=== PATIENT | female | born 1965 | race Caucasian/White ===

== ENCOUNTER 2018-09-30 07:05 | Day surgery (SDC) | payer BC ==
[~2018-09-30] VITALS: Ht 157.5 cm; Wt 55.5 kg
--- NOTE | ~2018-09-30 | OP ---
PATIENT NAME: CHANTEL SINGH MEDICAL RECORD: [id number] :61 LOCATION:D.OPS ADMISSION DATE: SURGEON: AZUL INFANTE MD DATE OF OPERATION: 09/30/2018 PROCEDURE: Colonoscopy without polypectomy or biopsy. SENIOR LIBRARIAN: Azul Infante MD SCOPE: Olympus video colonoscope. MEDICATIONS: Per TIVA anesthesia. The patient has lupus, also glaucoma. She had 250 mg of propofol for this procedure, O2 4 liters. INDICATION FOR THE PROCEDURE: History of colon polyps, last procedure in 2013. This is a screening colonoscopy. FINDINGS: Informed consent was given. The patient was made comfortable with the above medications. After reaching an adequate level of sedation by slow IV push, the patient was placed on her left side. The rectal exam revealed good sphincter tone, no fissures or fistulas were appreciated. No external skin tags were seen. The colonoscope was advanced to the cecum where the ileocecal valve and appendiceal orifice were identified. On withdrawal of the scope, mucosa was carefully inspected. The patient had no polyps, masses, inflammation, diverticula, and colon mucosa was felt to be normal. On retroflexion and final withdrawal of the scope, the previously noted hyperplastic polyp site was seen in the rectum. The patient has a white scar indicating removal of this polyp. She also has some minimal internal hemorrhoids. IMPRESSION: 1. Minimal internal hemorrhoids. 2. Documentation of the previous polypectomy scar in the rectum. This was again observed. 3. No polyps, masses, inflammation, or diverticula. PLAN: 1. The patient should continue high fiber diet. 2. Probiotics. 3. She should use caution with anti-inflammatory drugs. TRANSINT:[id number] Voice Confirmation ID: [id number] DOCUMENT ID: [id number] AZUL INFANTE MD CC: [id number] DICTATION DATE: 09/30/18 1024 [employer] ATTORNEY: 09/30/18 1127 [facility] [place] 09/30/18 [id number] [place] [address]
[2018-09-30 07:25] LABS: HEMATOCRIT 36.5 % (36.0-48.0); HEMOGLOBIN 12.6 g/dL (12-16); MCH 33.1 pg (26.0-34.0); MCHC 34.5 g/dL (31.0-37.0); MCV 95.8 fL (80.0-100.0); MEAN PLATELET VOLUME 10.5 fL (7.4-10.4); RBC 3.81 10x6/uL (4.00-5.40); RDW 12.4 % (11.5-14.5)
[2018-09-30] MEDS ORDERED: ZOFRAN ODT4 MG/UDTAB PO (08:32)
[2018-09-30] MEDS ORDERED: BENLYSTA (08:33)
[2018-09-30] MEDS ORDERED: HYDROXYCHLOR TAB 200 (08:33)
[2018-09-30] MEDS ORDERED: ELINEST (08:33)
[2018-09-30] MEDS ORDERED: XALATAN 0.0052.5 ML EACH EYE (08:35)
[2018-09-30 08:43] VITALS: BP 123/75; Ht 157.5 cm; Wt 55.5 kg
[2018-09-30 09:14] LABS: HCG URINE NEGATIVE (NEGATIVE)
--- NOTE | 2018-09-30 11:12 | NUR ---
DC INSTRUCTIONS GIVEN TO PT. STATES UNDERSTANDING. DC'D IV CATH FULLY INTACT.
--- NOTE | 2018-09-30 11:16 | NUR ---
PT LEFT UNIT VIA WC AT 1114
== END 2018-09-30 11:16 | disposition home or self-care (01) ==
LOC: D.OPS 07:05
PROVIDERS: Anesthesiology; Internal Medicine Gastroenterology
DX: Z12.11 Encounter for screening for malignant neoplasm of colon (principal); Z86.010 Personal history of colon polyps; M32.9 Systemic lupus erythematosus, unspecified; H40.9 Unspecified glaucoma